=== PATIENT | female | born 1970 | race Caucasian/White ===

== ENCOUNTER → 2019-01-08 | Outpatient (CLI) | payer OTHER ==
[~2019-01-08] VITALS: Ht 165.1 cm; Wt 108.9 kg
[2019-01-08] VITALS (7 sets, daily range): BP systolic 154–194; BP diastolic 84–134
[~2019-01-08] MED LIST: AMITRIPTYLINE H25 M2 PO; ATIVAN1 MG PO; IBUPROFEN 800800 M1 PO; LISINOPRIL40 MG PO; MELATONIN5 M1 PO; MELOXICAM7.5 MG PO; NEURONTIN 300300 M1 PO; NORVASC5 MG PO; POTASSIUM99 M1 PO; PREDNISONE; ROBAXIN 750 MG750 MG PO; TOLTERODINE TART4 MG PO; TRAMADOL 50 MG50 MG PO; XYZAL5 MG PO; ZANTAC 150MG T150 MG PO
== END | disposition home or self-care (01) ==
LOC: CAT 07:15 → SPEC 07:15
DX: M71.38 Other bursal cyst, other site (principal); M47.816 Spondylosis without myelopathy or radiculopathy, lumbar region; I10 Essential (primary) hypertension; M19.90 Unspecified osteoarthritis, unspecified site; Z90.710 Acquired absence of both cervix and uterus; Z82.49 Family history of ischemic heart disease and other diseases of the circulatory system; Z98.890 Other specified postprocedural states; Z79.899 Other long term (current) drug therapy; E66.09 Other obesity due to excess calories; Z68.38 Body mass index [BMI] 38.0-38.9, adult